=== PATIENT | male | born 1975 | race Caucasian/White ===

== ENCOUNTER 2024-11-11 07:34 | Day surgery (SDC) | payer BC, OTHER ==
[~2024-11-11 07:34] MED LIST: Sodium Chloride 0.9% 10 ML Syringe FLUSH PRN
[2024-11-11] MEDS ORDERED: Propofol 200 MG/20 ML SDV IV ONE (07:35)
[2024-11-11] MEDS ORDERED: Ketamine 500 mg/10 ML MDV IV ONE (07:35)
[2024-11-11] MEDS ORDERED: Lidocaine 2% 100 MG/5 ML Syringe IVPUSH ONE (07:35)
[2024-11-11] MEDS ORDERED: Midazolam 1 MG/ML 2 ML SDV IV ONE (07:35)
[2024-11-11] MEDS: Lactated Ringers 1,000 ML IV SCH (08:36)
[2024-11-11] MEDS: Simethicone Drops 40 MG/0.6 ML 30 ML Bottle ONE (08:54)
== END 2024-11-11 10:30 | disposition home or self-care (01) ==
LOC: FB.SDS 07:34
PROVIDERS: ATTEND Surgery
DX: Z12.11 Encounter for screening for malignant neoplasm of colon (principal); R19.5 Other fecal abnormalities; J45.909 Unspecified asthma, uncomplicated; K21.9 Gastro-esophageal reflux disease without esophagitis; Z87.891 Personal history of nicotine dependence; Z79.899 Other long term (current) drug therapy
CPT/HCPCS: 45378; A9270; J2250; J2704; J3490; J7120; 00811